=== PATIENT | female | born 1960 | race Caucasian/White ===

== ENCOUNTER 2024-04-14 17:34 | Emergency (ER) | payer OTHER ==
[~2024-04-14] VITALS: Ht 177.8 cm; Wt 119.7 kg
[2024-04-14 17:44] VITALS: BP_SYST 128; PULSE 83; RESP 16; TEMP 98; O2SAT 96
[2024-04-14 19:49] LABS: BASOPHILS # (AUTO) 0.1 K/uL (0.0-0.2); EOSINOPHILS # (AUTO) 0.6 K/uL (0.0-0.4); EOSINOPHILS % (AUTO) 5.5 % (0.0-4.0); HEMATOCRIT 42.6 % (36-48); HEMOGLOBIN 14.7 g/dL (12.0-16.0); LYMPHOCYTES # (AUTO) 2.1 K/uL (1.0-5.5); LYMPHOCYTES % (AUTO) 20.2 % (20.5-51.5); MEAN CORPUSCULAR HEMOGLOBIN 33 pg (27-31); MEAN CORPUSCULAR HGB CONC 34 % (32-36); MEAN CORPUSCULAR VOLUME 95 fL (79.0-98.0); MONOCYTES # (AUTO) 0.9 K/uL (0.0-1.0); MONOCYTES % (AUTO) 9.2 % (1.7-9.3); NEUTROPHILS # (AUTO) 6.5 K/uL (1.8-7.7); NEUTROPHILS % (AUTO) 64.1 % (40.0-70.0); PLATELET COUNT (AUTO) 507 K/uL (130-430); RED BLOOD CELL COUNT(AUTO) 4.47 MIL/uL (4.2-6.2); RED CELL DISTRIBUTION WIDTH 13.3 % (9.0-15.0); WHITE BLOOD COUNT (AUTO) 10.2 K/uL (4.8-10.8)
[2024-04-14 19:51] LABS: ERYTHROCYTE SEDIMENTATION RATE 6 MM/HR (0-20)
[2024-04-14 19:58] LABS: ALBUMIN 3.9 g/dL (3.4-4.8); CALCIUM 9.5 mg/dL (8.4-11.0); CREATININE 1.03 mg/dL (0.55-1.30); POTASSIUM 4.1 mmol/L (3.5-5.1); TOTAL PROTEIN, SERUM 7.7 g/dL (6.4-8.3)
[2024-04-14 20:08] LABS: BILIRUBIN,DIRECT 0.2 mg/dL (0.0-0.3)
[2024-04-14] MEDS: predniSONE 20 MG TABLET PO ONE (20:43)
[2024-04-14] MEDS ORDERED: PRED20TA PO (21:04)
[2024-04-14] MEDS ORDERED: FAMO-132 PO (21:04)
[2024-04-14] MEDS ORDERED: DIPH25CA83 PO (21:04)
[2024-04-14 21:10] VITALS: BP_SYST 131; PULSE 74; RESP 16; TEMP 98; O2SAT 95
== END 2024-04-14 21:10 | disposition home or self-care (01) ==
LOC: SED 17:34
DX: R21 Rash and other nonspecific skin eruption (principal); L29.9 Pruritus, unspecified
CPT/HCPCS: 99283; 80076; 80048; 85025; 85651; 36415; 82397; J7512